=== PATIENT | male | born 1990 | race Caucasian/White ===

== ENCOUNTER 2017-02-24 10:29 | Emergency (ER) | payer MEDICARE ==
[2017-02-24 11:28] LABS: HEMOGLOBIN 12.7 gm/dl (14.0-17.5); RED BLOOD COUNT 4.42 M/UL (4.20-5.50); WHITE BLOOD COUNT 10.6 K/UL (4.5-11.0)
[2017-02-24 11:48] LABS: BUN/CREATININE RATIO 14 (0-10)
== END 2017-02-24 13:18 | disposition home or self-care (01) ==
LOC: ER1 10:29
PROVIDERS: Specialist/Technologist Athletic Trainer
DX: K61.0 Anal abscess (principal); E66.01 Morbid (severe) obesity due to excess calories; F17.200 Nicotine dependence, unspecified, uncomplicated; J45.909 Unspecified asthma, uncomplicated; Z88.2 Allergy status to sulfonamides; Z79.899 Other long term (current) drug therapy
CPT/HCPCS: 36415; 80053; 85025; 96360; 99284; J7030; J7050; Q9962